=== PATIENT | female | born 1985 | race Caucasian/White ===

== ENCOUNTER 2017-08-04 17:35 | Emergency (ER) | payer OTHER ==
[~2017-08-04] VITALS: Ht 157.5 cm; Wt 63.7 kg
[~2017-08-04 17:35] MED LIST: ENDOCET 5-3251 EACH PO; IBUPROFEN800 MG PO; PRE-NATAL VITAMIN PO
[2017-08-04 19:33] LABS: EOSINOPHIL (%) 0 % (0-5); HEMATOCRIT 31.6 % (36.0-46.0); IMMATURE GRANULOCYTE (%) 0.6 % (0.0-0.7); INSTRUMENT ABS NEUTROPHIL CT 5.8 K/uL; LYMPHOCYTE COUNT 0.5 K/uL (1.0-2.8); MCH 24.5 PG (29.0-34.0); MCV 76.7 FL (83-99); MEAN PLAT.VOLUME 8.8 uM^3 (9.5-12.4); MONOCYTE (%) 6.2 % (3-12); MONOCYTE COUNT 0.4 K/uL (0-0.8); NEUTROPHIL (%) 85.9 % (45-76); NEUTROPHIL COUNT 5.8 K/uL (1.8-6.4); PLATELET COUNT 353 K/uL (156-360); RBC DIS.WIDTH-CV 13.8 % (11.8-14.6); RBC DIS.WIDTH-SD 38.4 % (39-53); RED BLOOD COUNT 4.12 M/uL (3.80-5.20); WHITE BLOOD COUNT 6.8 K/uL (4.1-10.2)
[2017-08-04 19:38] LABS: ADD MIUA? YES; BILIRUBIN NEGATIVE; BLOOD MODERATE; COLOR YELLOW ((YELLOW)); GLUCOSE (STRIP) NEGATIVE; KETONES NEGATIVE; LEUKOCYTES NEGATIVE; NITRITE NEGATIVE; PROTEIN (STRIP) 100; SPECIFIC GRAVITY 1.029 (1.000-1.030)
[2017-08-04 19:39] LABS: BACTERIA NONE SEEN /HPF; EPITHELIAL CELLS 1+ /HPF; MUCUS 1+ /LPF; RED BLOOD CELLS 0-5 /HPF (0-5); WHITE BLOOD CELLS 0-5 /HPF (0-5)
[2017-08-04 19:45] LABS: CHLORIDE 111 mEq/L (99-109); POTASSIUM 3.5 mEq/L (3.7-5.4); SODIUM 139 mEq/L (136-147)
[2017-08-04 19:48] LABS: GLUCOSE 105 mg/dL (70-99)
[2017-08-04 19:49] LABS: ANION GAP 7 MEQ/L (2-14)
[2017-08-04 19:50] LABS: TOTAL BILIRUBIN 0.6 mg/dL (0.0-1.0)
[2017-08-04 19:51] LABS: ALKALINE PHOSPHATASE 51 IU/L (3-129); GFR ESTIMATE (CALCULATED) > 59 mL/min/
[2017-08-04 19:52] LABS: UREA NITROGEN (BUN) 13 mg/dL (9-23)
[2017-08-04 19:53] LABS: DIRECT BILIRUBIN 0.2 mg/dL (0.0-0.3)
[2017-08-04 19:55] LABS: LIPASE 17 U/L (1.0-51.0)
[2017-08-04 20:01] LABS: QUANTITATIVE HCG < 4.0 MIU/ML
[2017-08-04] MEDS ORDERED: BENTYL20 MG PO (21:34)
[2017-08-04] MEDS ORDERED: PROMETHAZINE HC25 M1 PO (21:34)
[2017-08-04] MEDS ORDERED: PHENERGAN25 MG PR (21:34)
[2017-08-04 22:22] VITALS: BP 107/76
== END 2017-08-04 22:24 | disposition home or self-care (01) ==
LOC: EME 17:35
PROVIDERS: Physician Assistant
DX: R11.2 Nausea with vomiting, unspecified (principal); R10.12 Left upper quadrant pain; R19.7 Diarrhea, unspecified; E87.6 Hypokalemia; E83.51 Hypocalcemia
CPT/HCPCS: 74177; 80048; 80076; 81003; 83605; 83690; 84702; 85025; 99281; 99285; J1885; J2405; J2550; J3010; J7030; Q0169